=== PATIENT | female | born 1995 | race Two or more races ===

== ENCOUNTER 2023-03-17 08:36 | Outpatient (CLI) | payer OTHER ==
[2023-03-17 09:49] LABS: HEMATOCRIT 37.3 % (36.0-45.00); HEMOGLOBIN 12.7 g/dL (12.0-15.00); MEAN CELL VOLUME 90.7 fL (80.00-100.00); MEAN CORPUSCULAR HEMOGLOBIN 30.8 pg (27.00-32.0); PLATELET COUNT 272 K/uL (150-450); RED BLOOD COUNT 4.11 M/uL (4.00-6.00); RED CELL DISTRIBUTION WIDTH 13.8 % (11.5-14.5)
[2023-03-17 10:16] LABS: COL EPI 111 SECONDS (82-175)
[2023-03-17 10:21] LABS: ALBUMIN 3.8 gm/dL (3.4-5.0); BILIRUBIN TOTAL 0.37 mg/dL (0.3-1.2); CREATININE SERUM 0.49 mg/dL (0.55-1.02); GFR 149.31; GLOBULINA 3.8 G/DL (2.4-3.5); POTASSIUM 3.81 mEq/L (3.5-5.1); TOTAL PROTEIN 7.6 gm/dL (6.4-8.2)
[2023-03-17 10:23] LABS: INR 1.01; PARTIAL THROMBOPLASTIN TIME 27.6 SECONDS (22.0-34.0); PROTHROMBIN TIME 10.6 SECONDS (9.0-11.5)
[2023-03-17 10:36] LABS: PT 50:50 10.5 SECONDS (9.7-11.4); PTT 50:50 25.6 SECONDS (22.4-33.0)
== END 2023-03-17 08:39 | disposition home or self-care (01) ==
LOC: EDBD 08:36 → LAB 08:36
PROVIDERS: ATTEND Internal Medicine Hematology & Oncology
DX: D50.8 Other iron deficiency anemias (principal); R79.9 Abnormal finding of blood chemistry, unspecified; I10 Essential (primary) hypertension; R74.02 Elevation of levels of lactic acid dehydrogenase [LDH]; K76.89 Other specified diseases of liver; D68.8 Other specified coagulation defects; E56.1 Deficiency of vitamin K; D69.1 Qualitative platelet defects; N92.0 Excessive and frequent menstruation with regular cycle; E03.8 Other specified hypothyroidism; D66 Hereditary factor VIII deficiency

== ENCOUNTER 2024-09-13 09:42 | Outpatient (CLI) | payer OTHER ==
[~2024-09-13 09:42] MED LIST: D3-5000125 MCG
[2024-09-13 11:12] LABS: HEMATOCRIT 44.3 % (36.0-45.00); HEMOGLOBIN 15.3 g/dL (12.0-15.00); MEAN CELL VOLUME 89.4 fL (80.00-100.00); MEAN CORPUSCULAR HEMOGLOBIN 30.9 pg (27.00-32.0); MEAN CORPUSCULAR HGB CONC 34.6 g/dl (32.0-36.0); PLATELET COUNT 198 K/uL (150-450); RED BLOOD COUNT 4.95 M/uL (4.00-6.00); RED CELL DISTRIBUTION WIDTH 13.6 % (11.5-14.5)
[2024-09-13 11:25] LABS: PH,URINE 5.5 (5.0-8.0); URINE APPEARANCE Cloudy; URINE BILIRRUBIN Small (NEGATIVE); URINE BLOOD Negative; URINE COLOR Dark Yellow; URINE GLUCOSE Negative (NEGATIVE); URINE LEUKOCYTE Trace; URINE NITRATE Negative; URINE PROTEIN 30 (NEGATIVE)
[2024-09-13 11:29] LABS: URINE BACTERIA 1045.2 uL (0.0-1933); URINE EPITHELIAL CELLS 33.3 uL (0.0-38.8); URINE RBC 32.1 uL (0.0-20.8)
[2024-09-13 12:11] LABS: URINE CAST 0.73 uL (0.0-1.40); URINE KETONE 40 (NEGATIVE)
[2024-09-13 12:21] LABS: ALBUMIN 4.3 gm/dL (3.4-5.0); BILIRUBIN TOTAL 0.46 mg/dL (0.3-1.2); CALCIUM 9.7 mg/dL (8.5-10.1); CHOL HDL RATIO 2.1 (0-5.0); CREATININE SERUM 0.59 mg/dL (0.55-1.02); GFR 118.88; GLOBULINA 4.1 G/DL (2.4-3.5); POTASSIUM 3.97 mEq/L (3.5-5.1); TOTAL PROTEIN 8.4 gm/dL (6.4-8.2)
[2024-09-13 13:30] LABS: FOLIC ACID > 20.00 ng/ml (4.78-20); VITAMIN D3 25 HYDROXY 51.75 ng/ml (30-120)
[2024-09-13 16:52] LABS: T4 FREE 1.28 NG/ML (0.76-1.46)
[2024-09-13 16:53] LABS: TSH 0.204 uIU/mL (0.358-3.74)
[2024-09-14 07:08] LABS: HEPATITIS C VIRUS ANTIBODY Non Reactive (Non Reactive); hav igm Negative (Negative); hcv Non Reactive (Non Reactive); hep b c Negative (Negative); hep b s ag Negative (Negative)
[2024-09-14 08:17] LABS: MANUAL PLATELET COUNT 334; PLATELET ESTIMATE NORMAL (NORMAL)
[2024-09-14 09:12] LABS: ANTI THYROID PEROXIDASE 15 IU/mL (0-34)
== END 2024-09-13 09:43 | disposition home or self-care (01) ==
LOC: LAB 09:42
PROVIDERS: ATTEND Internal Medicine Hematology & Oncology
DX: D51.1 Vitamin B12 deficiency anemia due to selective vitamin B12 malabsorption with proteinuria (principal); D50.8 Other iron deficiency anemias; N92.0 Excessive and frequent menstruation with regular cycle; E03.8 Other specified hypothyroidism; R79.9 Abnormal finding of blood chemistry, unspecified; I10 Essential (primary) hypertension; R74.02 Elevation of levels of lactic acid dehydrogenase [LDH]; K76.89 Other specified diseases of liver; D51.0 Vitamin B12 deficiency anemia due to intrinsic factor deficiency; D51.8 Other vitamin B12 deficiency anemias; E06.3 Autoimmune thyroiditis; Z12.11 Encounter for screening for malignant neoplasm of colon; D64.9 Anemia, unspecified; N95.1 Menopausal and female climacteric states; C51.9 Malignant neoplasm of vulva, unspecified; N30.00 Acute cystitis without hematuria; E83.51 Hypocalcemia; A64 Unspecified sexually transmitted disease; N39.0 Urinary tract infection, site not specified; R97.8 Other abnormal tumor markers; R79.89 Other specified abnormal findings of blood chemistry; E55.9 Vitamin D deficiency, unspecified; A60.9 Anogenital herpesviral infection, unspecified

== ENCOUNTER 2025-01-15 09:33 | Outpatient (CLI) | payer OTHER ==
[2025-01-15 10:47] LABS: BASO % 0.2 % (0.1-1.2); EOS # 0.04 (0.04-0.54); EOS % 0.4 % (0.7-7.0); LYMPH # 1.70 (1.18-3.74); LYMPH % 16.0 % (19.3-53.1); MEAN PLATELET VOLUME 11.30 fl (9.4-12.4); MONO # 0.77 (0.24-0.82); MONO % 7.3 % (4.7-12.5); NEUT # 8.05 (1.56-6.13); NEUT % 75.8 % (34.0-71.1); RED CELL DISTRIBUTION WIDTH 13.2 % (11.6-14.4)
[2025-01-15 15:12] LABS: ALT/SGPT 20.0 U/L (12-78); AST/SGOT 10.0 U/L (15-37); BILIRUBIN TOTAL 0.63 mg/dL (0.3-1.2); BUN CREA RATIO 13.0 (7.0-25.0); CREATININE SERUM 0.52 mg/dL (0.55-1.02); GFR 137.54; GLOBULINA 3.4 G/DL (2.4-3.5); GLUCOSE FASTING 89.0 mg/dL (65-100); OSMOLALITY SERUM 284.0 MOSM/KG (275-295); T4 FREE 1.19 NG/ML (0.76-1.46)
[2025-01-15 15:15] LABS: TSH 0.157 uIU/mL (0.358-3.74)
== END 2025-01-15 09:39 | disposition home or self-care (01) ==
LOC: LAB 09:33
PROVIDERS: ATTEND Internal Medicine
DX: E11.65 Type 2 diabetes mellitus with hyperglycemia (principal); E05.91 Thyrotoxicosis, unspecified with thyrotoxic crisis or storm; I10 Essential (primary) hypertension

== ENCOUNTER 2025-02-09 06:43 | Outpatient (CLI) | payer OTHER | END 2025-02-09 06:49 | disposition home or self-care (01) | LOC: LAB 06:43 | PROVIDERS: ATTEND Internal Medicine Sports Medicine | DX: Z32.00 Encounter for pregnancy test, result unknown (principal); C73 Malignant neoplasm of thyroid gland; E05.90 Thyrotoxicosis, unspecified without thyrotoxic crisis or storm ==